=== PATIENT | male | born 1955 | race Caucasian/White ===

== ENCOUNTER 2020-04-17 07:21 | Inpatient (IN) | payer MEDICARE, OTHER ==
[2020-04-12 09:24] LABS: ABSOLUTE EOSINOPHILS 0.2 thou/uL (0.0-0.7); ABSOLUTE LYMPHOCYTES 1.4 thou/uL (0.8-5.3); ABSOLUTE MONOCYTES 0.5 thou/uL (0.0-1.2); ABSOLUTE NEUTROPHILS 2.7 thou/uL (1.6-8.1); BASOPHILS 0.6 %; EOSINOPHILS 4.1 %; HEMATOCRIT 46.3 % (42.0-52.0); HEMOGLOBIN 16.3 gm/dL (14.0-18.0); LYMPHOCYTES 28.9 %; MCH 32.4 pg (26.0-34.0); MCHC 35.2 g/dL (28.0-37.0); MCV 91.9 fL (80.0-100.0); MONOCYTES 9.7 %; MPV 7.4 fl. (7.2-11.1); NUCLEATED RBCS 0 /100WBC; PLATELET COUNT* 219 thou/uL (150-400); POLYS 56.7 %; RBC 5.04 mil/uL (4.50-6.00); RDW-CV 13.4 % (10.5-14.5); WBC 4.7 thou/uL (4.0-11.0)
[2020-04-12 09:43] LABS: ALBUMIN 3.9 g/dL (3.4-5.0); CALCIUM 9.2 mg/dL (8.5-10.1); POTASSIUM 4.7 mmol/L (3.5-5.1); TOTAL BILIRUBIN 0.6 mg/dL (<0.1-1.0); TOTAL PROTEIN 7.3 g/dL (6.4-8.2)
[~2020-04-17] VITALS: Ht 177.8 cm; Wt 117.0 kg
[~2020-04-17 07:21] MED LIST: ALKA-SELTZER P1 EA14 PO; ALLER-CHLOR4 MG PO; ASPIR 8181 M1 PO; CELEBREX100 MG/1 C PO; CENTRUM SILVER1 EAC2 PO; FISH OIL 1,0001 EAC9 PO; MAXZIDE-25 MG1 EACH PO; OMEGA-3 FLAXS1000 MG PO; PROTONIX40 M1 PO; TYLENOL EXTRA500 MG PO; ULTRAM 50MG TAB50 MG PO; VITAMIN D350 MC1 PO; VITAMIN E400 UNI2 PO; VITAMINC500 PO; VOLTAREN GEL 1100 G2 TOP
[2020-04-17 09:45] VITALS: BP 144/92
[2020-04-17 20:00] VITALS: BP 134/83
[2020-04-18] VITALS: BP 131/89
[2020-04-18 04:00] VITALS: BP 135/84
--- NOTE | 2020-04-18 08:01 | OP ---
[facility] [address] [place] [address] OPERATIVE REPORT Name: SYED CAMPOS Room: [address] IN R#: [id number] Admission: 04/17/20 Attend Phys: Desmond Betancourt Discharge: Date of : 51 Report #: [id number] THIS REPORT FOR: //name// cc: Medardo Amado MD, Louis A. MD ~ THIS REPORT FOR: //name// CC: Mikey Amado DICTATED BY: Darshan Burnett DO DATE OF SERVICE: 04/17/2020 PREOPERATIVE DIAGNOSIS: Right knee severe primary osteoarthritis. POSTOPERATIVE DIAGNOSIS: Right knee severe primary osteoarthritis. OPERATION PERFORMED: Left total knee arthroplasty. SURGEON: Mikey Fink DO SPANISH TEACHER: Darshan Burnett DO and Jg Campbell DO ANESTHESIA: General with preoperative adductor canal block with indwelling catheter. ESTIMATED BLOOD LOSS: 250 mL. ANTIBIOTICS: 2 grams IV Ancef given within 1 hour of skin incision. DRAINS: None. SPECIMENS: None. COMPLICATIONS: None. CONDITION: Stable. DISPOSITION: PACU to the orthopedic floor. OPERATIVE IMPLANTS: Ricardo Persona total knee system with the following components. 1. A size 9 cemented posterior stabilized standard with femoral component. 2. A size G cemented tibial component. 3. A size 35 mm patellar component. [address] [address] OPERATIVE REPORT Name: SYED CAMPOS Room: [address] IN [facility]#: [id number] Admission: 04/17/20 Attend Phys: Desmond Betancourt Discharge: Date of : 51 Report #: [id number] 4. A 14 mm constrained posterior stabilized articular insert and also 2 bags of Biomet bone spur utilized for implantation. OPERATIVE INDICATIONS:: The patient is a pleasant 64-year-old male who is followed in orthopedic regarding his longstanding bilateral knee pain. Radiographs and exam are consistent with severe degenerative changes with loss of joint space, subchondral sclerosis and osteo, significant varus deformity, which is partially correctable. He did walk with a varus thrust gait as well. Due to failure to respond to conservative treatments including activity modifications, physical therapy and anti-inflammatory medications by mouth as well as intra-articular steroid injections, we did recommend a total knee arthroplasty. Risks, indications, and treatment alternatives were discussed with the patient and his informed consent was obtained. DESCRIPTION OF PROCEDURE: The patient was taken to the operating suite, placed on table in supine position. General anesthesia was then induced. A well-padded pneumatic tourniquet was placed on the left upper thigh. This was inflated to 300 mmHg for a total of approximately 20 minutes while the drain cementation. The left lower extremity was then sterilely prepped and draped free in the usual fashion. Time-out was then performed to confirm the safety checklist has been completed and all the present OR personnel were in agreement. standard midline incision was marked out over the left knee. A sharp dissection was then carried down through the skin and subcutaneous tissue down to the level of the extensor mechanism. A standard medial parapatellar arthrotomy was then performed. The patella was then everted. The knee was hyperflexed. Retractors were placed. The infrapatellar fat pad was excised. Access was gained to the intramedullary canal of the femur with a large drill. The intramedullary cutting guide was then set to resect 11 mm from the distal femur at 5 degrees of valgus, this was then pinned into position, the cut was confirmed with an darrick wing, the cut was made with a reciprocating saw through the capture block. The bony wafer was then removed. Attention was then taken to the proximal tibia. Extramedullary tibial guide was set to resect 10 mm from the lateral high side. This was then aligned in all planes and the cutting block was pinned into position. Retractors were placed to protect collateral ligaments as well as the patellar tendon. The cut was then made through the capture block with the reciprocating saw. Bony wafer was then removed. There was a section of the posterior medial plateau which was unresected. Therefore, we did proceed with an additional 2 mm cut. At this time, the extension block was measured, 10 mm block did fit nicely. The remaining pins were removed. The knee was then once again flexed up and the meniscal remnants were removed as well as the cruciate ligament remnants and osteophytes were also removed from the femur and the tibia as well as the medial tibial plateau. Posterior osteophytes were also removed with a curved osteotome and rongeur. The tibial plateau was then appropriately measured and appropriately sized tibial baseplate was pinned into position in appropriate rotation. The femoral trial was then impacted onto the distal femur. The box cut was then made through the guide[place] [address] OPERATIVE REPORT Name: SYED CAMPOS Room: [facility].#: [id number] Admission: 04/17/20 Attend Phys: Desmond Betancourt Discharge: Date of : 51 Report #: [id number] bearings were then trialled and ultimately a size 14 mm trial was selected, which gave full range of motion and excellent stability. However, there was noted to be laxity laterally. Therefore, we did proceed with the constrained posterior stabilized insert. Attention was then taken to the patella. There were significant degenerative change of the patella. We did proceed with resurfacing with the Ricardo reaming system to a 16 mm thickness, which left a nice flush cut surface, the 3 peg holes were then drilled through the guide. The patellar button was placed through full range of motion, found to be tracking appropriately. At this time, the femur was prepared for final implantation by drilling the peg holes. The tibia was also prepared for final implantation with the reamer and cruciform punch. All the trial components were removed. The knee was copiously irrigated. The posterior capsule structures were treated with electrocautery to maintain hemostasis. The bone cement was mixed on the back table, The extremity was exsanguinated and the tourniquet was inflated. The bony cut surfaces were copiously irrigated and presented. The bone cement was then once at the appropriate viscosity applied to the undersurface of the final components and pressurized by hand within the interstices of the bony cut surfaces. The final components were then impacted into position beginning with the tibia, followed by the femur and finally the patellar component was clamped into position. A 14 mm spacer was placed inside the knee and allowed to compress the knee in full extension while the cement was completely hardened, all the excess bone cement was removed sharply. Topical TXA was also placed in the knee and allowed to sit for at least 5 minutes. Once the bone cement was completely hardened, the trial component was removed and the final 14 mm constrained posterior stabilized articular insert was placed and locked into position. The knee was once finally taken through a range of motion, found to have full extension, full flexion, and was stable to varus and valgus stressing. The knee was then placed in 90 degrees of flexion while layered closure was performed, beginning with #1 Vicryl and Ticron suture on the extensor mechanism. The subcutaneous layer was then reapproximated with 2-0 buried Monocryl suture followed by running 3-0 Stratafix suture on the skin. The skin glue was applied to the incision and allowed to dry, followed by application of a Mepilex dressing and thigh high ERUM hose. The patient was awakened from general anesthetic and transferred to PACU in stable condition with no apparent complications. Sponge, needle counts reported correct for the OR personnel and attestation Dr. Mikey Fink was present for all critical aspects of surgery. <ELECTRONICALLY SIGNED> By: Mikey Fink DO 04/18/20 0801 [id number] [id number] Fink DO /becky
[2020-04-18 08:15] VITALS: BP 125/78
[2020-04-18] MEDS ORDERED: OXYCODONE HCL 55 MG PO (11:17)
[2020-04-18] MEDS ORDERED: TRAMADOL 50 MG50 MG PO (11:18)
[2020-04-18] MEDS ORDERED: ELIQUIS2.5 MG PO (11:19)
[2020-04-18 12:00] VITALS: BP 144/83
[2020-04-18 16:00] LABS: HEMATOCRIT 37.8 % (42.0-52.0); HEMOGLOBIN 13.1 gm/dL (14.0-18.0)
[2020-04-18 20:00] VITALS: BP 144/81
[2020-04-19 05:46] LABS: HEMATOCRIT 34.6 % (42.0-52.0)
[2020-04-19 08:10] VITALS: BP 130/68
[2020-04-19 17:19] VITALS: BP 134/62
[2020-04-19 20:20] VITALS: BP 142/72
[2020-04-20 04:08] VITALS: BP 137/71
[2020-04-20 07:39] VITALS: BP 131/77
[2020-04-20 08:36] VITALS: BP 131/77
[2020-04-20 15:59] VITALS: BP 131/77
[2020-04-20 16:09] VITALS: BP 131/77
[2020-04-20 16:43] VITALS: BP 131/77
== END 2020-04-20 17:14 | disposition home health service (06) | DRG 470 ==
LOC: M.PRE 07:21 → EDSTATUS 07:23 → M.PRE 07:25 → M.TBA 09:33 → M.PRE 10:31 → M.TBA 13:40 → M.3W 13:40 → M.PRE 18:02 → M.3W 18:07
PROVIDERS: Orthopaedic Surgery; ADMIT Internal Medicine
PROC: 0SRD0J9 Replacement of Left Knee Joint with Synthetic Substitute, Cemented, Open Approach (ICD-10-PCS; principal; 2020-04-17)
DX: M17.12 Unilateral primary osteoarthritis, left knee (principal); D62 Acute posthemorrhagic anemia; K08.409 Partial loss of teeth, unspecified cause, unspecified class; K21.9 Gastro-esophageal reflux disease without esophagitis; Z85.46 Personal history of malignant neoplasm of prostate; Z87.891 Personal history of nicotine dependence; Z90.49 Acquired absence of other specified parts of digestive tract; Z79.82 Long term (current) use of aspirin; Z79.899 Other long term (current) drug therapy

== ENCOUNTER → 2020-07-19 | Outpatient (CLI) | payer MEDICARE, OTHER ==
[~2020-07-19] MED LIST changes: +ELIQUIS2.5 MG PO; +OXYCODONE HCL 55 MG PO; +SUPHEDRINE PE10 MG PO; +TRAMADOL 50 MG50 MG PO
[2020-07-19 10:12] LABS: ABSOLUTE EOSINOPHILS 0.2 thou/uL (0.0-0.7); ABSOLUTE LYMPHOCYTES 1.2 thou/uL (0.8-5.3); ABSOLUTE MONOCYTES 0.5 thou/uL (0.0-1.2); ABSOLUTE NEUTROPHILS 3.1 thou/uL (1.6-8.1); BASOPHILS 0.8 %; EOSINOPHILS 4.6 %; HEMATOCRIT 46.3 % (42.0-52.0); HEMOGLOBIN 15.9 gm/dL (14.0-18.0); MCH 31.2 pg (26.0-34.0); MCHC 34.4 g/dL (28.0-37.0); MCV 90.6 fL (80.0-100.0); MONOCYTES 9.1 %; MPV 7.9 fl. (7.2-11.1); NUCLEATED RBCS 0 /100WBC; PLATELET COUNT* 215 thou/uL (150-400); POLYS 61.5 %; RDW-CV 13.2 % (10.5-14.5)
[2020-07-19 10:31] LABS: ALBUMIN 3.7 g/dL (3.4-5.0); CALCIUM 8.9 mg/dL (8.5-10.1); POTASSIUM 4.1 mmol/L (3.5-5.1); TOTAL BILIRUBIN 0.5 mg/dL (<0.1-1.0)
[2020-07-20 02:06] LABS: GLYCOHEMOGLOBIN (HGB A1C) 5.1 % (4.8-5.6)
== END ==
LOC: M.LAB 09:51
PROVIDERS: ATTEND Orthopaedic Surgery
DX: Z01.812 Encounter for preprocedural laboratory examination (principal); Z11.59 Encounter for screening for other viral diseases; M17.11 Unilateral primary osteoarthritis, right knee

== ENCOUNTER 2020-07-24 09:00 | Observation (INO) | payer MEDICARE, OTHER ==
[~2020-07-24] VITALS: Ht 177.8 cm; Wt 117.0 kg
[~2020-07-24 09:00] MED LIST changes: -VITAMIN D350 MC1 PO; +VITAMIN D350 MCG PO
[2020-07-24 18:40] VITALS: BP 140/88
[2020-07-24 19:42] VITALS: BP 133/87
[2020-07-24 23:57] VITALS: BP 128/82
[2020-07-25 04:00] VITALS: BP 117/72
[2020-07-25 04:29] LABS: HEMATOCRIT 36.5 % (42.0-52.0); HEMOGLOBIN 12.8 gm/dL (14.0-18.0)
--- NOTE | 2020-07-25 07:02 | OP ---
[address] [address] OPERATIVE REPORT Name: SYED CAMPOS Room: [address] Jonathan#: [id number] Admission: 07/24/20 Attend Phys: Desmond Betancourt Discharge: Date of : 51 Report #: [id number] THIS REPORT FOR: //name// cc: Medardo Amado MD, Louis A. MD ~ CC: Medardo Anand DATE OF SERVICE: 07/24/2020 PREOPERATIVE DIAGNOSES: Severe varus deformity, osteoarthritis, tricompartmental of the right knee. POSTOPERATIVE DIAGNOSES: Severe varus deformity, osteoarthritis, tricompartmental of the right knee. SURGERY PERFORMED: Ricardo posterior stabilized right total knee arthroplasty, three components. SURGEON: Mikey Fink DO. CUSTOMER SERVICE ATTENDANT: Dr. Banegas. SECOND WINDOWS SERVER SPECIALIST: Dr. Lyle. ANESTHESIA: General anesthetic and adductor canal block for anesthesia. The patient did receive Ancef 2 grams IV piggyback preoperatively. SPECIMENS: None. COMPLICATIONS: None. ESTIMATED BLOOD LOSS: 75 mL. GROSS FINDINGS: Prior to surgery, radiographs clearly correlate with large varus deformity, osteoarthritis. Radiographs; [id number] deformity medially with a noncongruent joint space, post-placement of the total knee arthroplasty demonstrated excellent aligned, well tracking patella through the stabilized completely through extension, mid flexion and flexion. DESCRIPTION OF PROCEDURE: The patient was taken to the operating room and placed on operating table, given the benefit of a general anesthetic. He did have a well-padded tourniquet placed on his right thigh. A gentleman underwent a Hibiclens scrub with chlorhexidine prep and sterile draping for right knee surgery. Timeout was called and verified by everyone in the room for the right [address] [address] OPERATIVE REPORT Name: CAMPOSSYED L Room: [address] Jonathan#: [id number] Admission: 07/24/20 Attend Phys: Desmond Betancourt Discharge: Date of : 51 Report #: [id number] knee. At this stage, we did go ahead and continue, then after the drape was accomplished with a midline incision without a tourniquet, had only used tourniquet at the very end for cementing. Through that, midline incision was carried down to the capsule. A second medial parapatellar capsular incision was made, patella everted and knee flexed to 90 degrees. All hemostasis was maintained. At this point in time, I removed extra osteophytes throughout the femoral side. Appropriate distal femoral drill hole was placed. I cut a standard cut off the distal femur to 5-degree angle and once that was cut I went down to the tibia, sized appropriately. I did go ahead and use the external guide for that across the ankle securing the cutting block and placed proximally and then cut away from the bone off of the tibia and removed it. Once this was accomplished, extension block fit excellent with slight instability laterally, so I took a Negrete to the medial side and loosen them up and it was much better. At this point in time, I went back into the femoral side, size 2 with a posterior referencing system for the right knee, 3-degree angle and appropriately drill holes were made. A 4-in-1 block was applied and all cuts were made. He was definitely sized to a 9 femur. Once that cuts were all made, that excess bone was removed and then I went back to the tibia, sized him to number F appropriately. The F fit fairly well on his tibia, so it was secured in place with small screws, put the femur back in place. At this point in time, I elected to do a posterior stabilizing component. That is what he had last time and so appropriately the cuts were made. I did a trial reduction with a #12 posterior stabilized post and I did fairly good. We thought we might be able to go up a little bit. I did a freehand cut to the patella next and at this stage, it sized it to 35. The patella tracked well through the arc of motion. Appropriately, I drilled the femur now and Esmarched the extremity to repair for the next stage of cementing. The Esmarch was placed and the tourniquet inflated to 300 mmHg. At this time, the femoral component, polyethylene trial was removed, the patellar button was removed and the tibia was appropriately reamed and a ____ cut was made and I drilled the extra hard tibia in several areas with a drill bit to get better bone purchase into the bone. Once this was accomplished, a pulsatile lavage irrigated the knee, one stage cementing technique was now done with the tibia and the femur and the patella, all were tamped into position. I put a 13 mm component in for trial and compression and held the leg in extension until cement hardened. Upon looking one more time, I elected to do a trial of a 14 mm, it fit great and that was very stable through the arc of motion. The trial component was removed. The knee was prepared for final implant polyethylene and was seated into the tibia tray, 14 and sized, posterior stabilized. The knee was reduced, placed through motion, very stable. Tourniquet was released. Hemostasis maintained, pulsatile lavage irrigated the knee, closed the capsule with #1 Vicryl one Ti-Cron [id number] fashion, subcutaneous tissue with 2-0 Monocryl in inverted fashion and did a running straight affixed Dermabond to the skin with Mepilex. He was transferred off the table and taken [place] [address] OPERATIVE REPORT Name: SYED CAMPOS Room: [address] Kevin Castillo#: [id number] Admission: 07/24/20 Attend Phys: Desmond Betancourt Discharge: Date of : 51 Report #: [id number] I attest I was present for all critical aspects of surgery. Needle, instrument, sponge counts correct. <ELECTRONICALLY SIGNED> By: Mikey Fink DO 07/25/20 0702 1450 [id number] Fink DO /becky
[2020-07-25 08:00] VITALS: BP 140/75
[2020-07-25] MEDS ORDERED: OXYCODONE HCL 55 MG PO (09:15)
[2020-07-25] MEDS ORDERED: ASPIRIN325 PO (09:15)
[2020-07-25] MEDS ORDERED: ELIQUIS5 MG PO (09:15)
[2020-07-25 11:52] VITALS: BP 104/66
[2020-07-25 12:49] VITALS: BP 104/66
[2020-07-25 15:35] VITALS: BP 112/75
[2020-07-25 16:16] VITALS: BP 104/66
== END 2020-07-25 16:52 | disposition home health service (06) ==
LOC: M.PRE 09:00 → M.ORTHSURG 11:38 → M.TBA 11:38 → M.ORTHSURG 18:19
PROVIDERS: Orthopaedic Surgery; ADMIT Internal Medicine; ATTEND Internal Medicine
DX: M17.11 Unilateral primary osteoarthritis, right knee (principal); M21.161 Varus deformity, not elsewhere classified, right knee; M17.12 Unilateral primary osteoarthritis, left knee; I10 Essential (primary) hypertension; K21.9 Gastro-esophageal reflux disease without esophagitis; H81.09 Meniere's disease, unspecified ear; Z85.46 Personal history of malignant neoplasm of prostate; Z79.82 Long term (current) use of aspirin; Z79.899 Other long term (current) drug therapy; Z87.891 Personal history of nicotine dependence

== ENCOUNTER → 2020-08-29 | Outpatient (CLI) | payer MEDICARE, OTHER ==
[~2020-08-29] MED LIST changes: +ASPIRIN325 PO; +ELIQUIS5 MG PO
== END ==
LOC: M.RAD 11:44
PROVIDERS: ATTEND Orthopaedic Surgery
DX: M25.561 Pain in right knee (principal); Z96.651 Presence of right artificial knee joint